=== PATIENT | male | born 1970 | race Caucasian/White ===

== ENCOUNTER 2020-11-07 15:05 | Inpatient (IN) | payer OTHER ==
[~2020-11-07] VITALS: Ht 170.2 cm; Wt 136.1 kg
[~2020-11-07 15:05] MED LIST: ATENOLOL50 MG; SYNTHROID100 MCG
[2020-11-07] MEDS ORDERED: JANUMET XR 50-1 EAC1 PO (15:31)
[2020-11-07] MEDS ORDERED: TENORMIN100 M1 PO (15:31)
[2020-11-07] MEDS ORDERED: SYNTHROID75 MCG PO (15:31)
[2020-11-07] MEDS ORDERED: METFORMIN HCL500 M3 (15:32)
[2020-11-12] MEDS ORDERED: TENORMIN100 M1 PO (16:17)
[2020-11-12] MEDS ORDERED: INTESTINEX680 M1 PO (16:17)
[2020-11-12] MEDS ORDERED: JANUMET XR 50-1 EAC1 PO (16:17)
[2020-11-12] MEDS ORDERED: SYNTHROID75 MCG PO (16:17)
== END 2020-11-12 17:49 | disposition home or self-care (01) | DRG 690 ==
LOC: ER 15:05 → SEC-K 22:41 → SURG 22:41 → SURH 11-09 08:15
PROVIDERS: ADMIT Internal Medicine; ATTEND Internal Medicine
PROC: 8E0ZXY6 Isolation (ICD-10-PCS; principal; 2020-11-07)
DX: N39.0 Urinary tract infection, site not specified (principal); Z16.12 Extended spectrum beta lactamase (ESBL) resistance; Z20.822 Contact with and (suspected) exposure to COVID-19; B96.20 Unspecified Escherichia coli [E. coli] as the cause of diseases classified elsewhere

== ENCOUNTER 2021-06-16 13:17 | Emergency (ER) | payer OTHER ==
[~2021-06-16] VITALS: Ht 177.8 cm; Wt 149.7 kg
[~2021-06-16 13:17] MED LIST changes: +INTESTINEX680 M1 PO; +JANUMET XR 50-1 EAC1 PO; +METFORMIN HCL500 M3; +SYNTHROID75 MCG PO; +TENORMIN100 M1 PO
[2021-06-16] MEDS ORDERED: XARELTO15 MG PO (18:05)
[2021-06-16] MEDS ORDERED: XARELTO20 MG PO (18:05)
== END 2021-06-16 18:10 | disposition home or self-care (01) ==
LOC: ER 13:17
DX: I80.9 Phlebitis and thrombophlebitis of unspecified site (principal); M79.604 Pain in right leg; I10 Essential (primary) hypertension; E11.9 Type 2 diabetes mellitus without complications

== ENCOUNTER 2021-06-22 06:56 | Emergency (ER) | payer OTHER ==
[~2021-06-22] VITALS: Ht 177.8 cm; Wt 149.7 kg
[~2021-06-22 06:56] MED LIST changes: +XARELTO15 MG PO; +XARELTO20 MG PO
== END 2021-06-22 12:56 | disposition home or self-care (01) ==
LOC: ER 06:56
DX: N20.2 Calculus of kidney with calculus of ureter (principal); R31.0 Gross hematuria; Z86.718 Personal history of other venous thrombosis and embolism; Z79.01 Long term (current) use of anticoagulants; Z79.84 Long term (current) use of oral hypoglycemic drugs; E11.9 Type 2 diabetes mellitus without complications

== ENCOUNTER 2022-02-24 04:25 | Emergency (ER) | payer OTHER ==
[~2022-02-24] VITALS: Ht 177.8 cm; Wt 149.7 kg
== END 2022-02-24 09:47 | disposition home or self-care (01) ==
LOC: ER 04:25
DX: N39.0 Urinary tract infection, site not specified (principal)

== ENCOUNTER 2022-05-26 13:32 | Emergency (ER) | payer OTHER ==
[~2022-05-26] VITALS: Ht 177.8 cm; Wt 148.8 kg
== END 2022-05-26 18:31 | disposition home or self-care (01) ==
LOC: ER 13:32
DX: N20.9 Urinary calculus, unspecified (principal)

== ENCOUNTER 2022-05-30 12:43 | Inpatient (IN) | payer OTHER ==
[~2022-05-30] VITALS: Ht 177.8 cm; Wt 148.8 kg
--- NOTE | 2022-05-30 13:44 | NUR ---
SE RECIBE PTE ALERTA ORIENTADO X3.PTE REFIERE MADAI PRESENTADO LA NOCHE DE [place] FIEBRE DOLOR GUS EN LA SOUMYA QUE IRRADIA A LA ESPALDA BAJAN Y ESCALOSFRIO.PTE REFIERE MADAI VISITADO LA WERNER DE EMERGENCIA EL PASADO PADMINI.SE RASHAWN S/V Y SE UBICA.
--- NOTE | 2022-05-30 16:31 | NUR ---
PACIENTE EVALUADO POR EL QUIEN ORDENA TRATAMIENTO MEDICO. IZA KWON REALIZA MUESTRAS BAJO MEDIDAS ASEPTICAS Y SE ADMINISTRAN MEDICAMENTOS EDMAR ORDEN.
[2022-06-08] MEDS ORDERED: LEVOTHYROXINE88 MCG PO (16:02)
[2022-06-08] MEDS ORDERED: MONDOXYNE NL100 MG PO (16:02)
[2022-06-08] MEDS ORDERED: TAMS0.4C PO (16:02)
[2022-06-08] MEDS ORDERED: INTESTINEX680 M1 PO (16:02)
[2022-06-08] MEDS ORDERED: ATENOLOL100 MG PO (16:02)
== END 2022-06-08 18:03 | disposition home or self-care (01) | DRG 689 ==
LOC: ER 12:43 → MEDI 21:41
PROVIDERS: Surgery; ADMIT Internal Medicine; ATTEND Internal Medicine
PROC: B24BZZZ Ultrasonography of Heart with Aorta (ICD-10-PCS; 2022-06-01)
PROC: 0TP98DZ Removal of Intraluminal Device from Ureter, Via Natural or Artificial Opening Endoscopic (ICD-10-PCS; principal; 2022-06-02 18:30)
DX: N13.6 Pyonephrosis (principal); A41.51 Sepsis due to Escherichia coli [E. coli]; N20.1 Calculus of ureter; Z16.12 Extended spectrum beta lactamase (ESBL) resistance; N17.9 Acute kidney failure, unspecified; E86.0 Dehydration; I10 Essential (primary) hypertension; E78.5 Hyperlipidemia, unspecified; E03.9 Hypothyroidism, unspecified; G47.33 Obstructive sleep apnea (adult) (pediatric); E11.9 Type 2 diabetes mellitus without complications; Z79.4 Long term (current) use of insulin; Z20.822 Contact with and (suspected) exposure to COVID-19

== ENCOUNTER → 2022-07-14 | Day surgery (SDC) | payer OTHER ==
[~2022-07-14] VITALS: Ht 177.8 cm; Wt 152.0 kg
[~2022-07-14] MED LIST changes: +ATENOLOL100 MG PO; +CEFUROXIME500 MG PO; +JANUMET 50-1,01 EACH PO; +LEVOTHYROXINE88 MCG PO; +MELOXICAM15 MG PO; +MONDOXYNE NL100 MG PO; +TAMS0.4C PO; +TRAMADOL HCL50 MG PO
== END | disposition home or self-care (01) ==
LOC: CIR.AMB 06:40
PROVIDERS: ATTEND Surgery
DX: N20.2 Calculus of kidney with calculus of ureter (principal); N20.1 Calculus of ureter; Z20.822 Contact with and (suspected) exposure to COVID-19; I10 Essential (primary) hypertension; E03.9 Hypothyroidism, unspecified; E11.9 Type 2 diabetes mellitus without complications; Z79.4 Long term (current) use of insulin

== ENCOUNTER 2023-02-15 10:46 | Emergency (ER) | payer OTHER ==
[~2023-02-15] VITALS: Ht 177.8 cm; Wt 149.7 kg
[2023-02-15 13:26] LABS: HEMATOCRIT 41.2 % (39.0-48.0); MEAN CELL VOLUME 93.2 fL (80.0-100.00); MEAN CORPUSCULAR HEMOGLOBIN 31.6 pg (27.00-32.0); MEAN CORPUSCULAR HGB CONC 33.9 g/dl (32.0-36.0); PLATELET COUNT 181 K/uL (150-450); RED BLOOD COUNT 4.42 M/uL (4.00-6.00); RED CELL DISTRIBUTION WIDTH 14.9 % (11.5-14.5)
[2023-02-15 13:43] LABS: CALCIUM 8.9 mg/dL (8.5-10.1); CREATININE SERUM 1.88 mg/dL (0.70-1.30); GFR 38.02; POTASSIUM 4.16 mEq/L (3.5-5.1)
[2023-02-16] MEDS ORDERED: SYNTHROID88 MCG PO (13:43)
== END 2023-02-15 15:20 | disposition home or self-care (01) ==
LOC: ER
PROVIDERS: General Practice
DX: J06.9 Acute upper respiratory infection, unspecified (principal); N39.0 Urinary tract infection, site not specified; E86.0 Dehydration; Z20.822 Contact with and (suspected) exposure to COVID-19

== ENCOUNTER → 2023-02-16 | Emergency (ER) | payer OTHER ==
[~2023-02-16] VITALS: Ht 177.8 cm; Wt 151.5 kg
[~2023-02-16] MED LIST changes: +METFORMIN HCL1000 M3 PO; +SYNTHROID88 MCG PO
== END | disposition home or self-care (01) ==
LOC: ER 13:20
DX: R19.7 Diarrhea, unspecified (principal)

== ENCOUNTER 2023-02-18 22:22 | Emergency (ER) | payer OTHER ==
[~2023-02-18] VITALS: Ht 177.8 cm; Wt 153.3 kg
[~2023-02-18 22:22] MED LIST changes: -METFORMIN HCL1000 M3 PO
[2023-02-18] MEDS ORDERED: METFORMIN HCL1000 M3 PO (22:37)
== END 2023-02-19 01:33 | disposition home or self-care (01) ==
LOC: ER 22:23
DX: N20.1 Calculus of ureter (principal); Z87.442 Personal history of urinary calculi; E11.9 Type 2 diabetes mellitus without complications; Z79.84 Long term (current) use of oral hypoglycemic drugs; I10 Essential (primary) hypertension

== ENCOUNTER 2023-09-08 13:34 | Emergency (ER) | payer OTHER ==
[~2023-09-08] VITALS: Ht 175.3 cm; Wt 136.1 kg
[~2023-09-08 13:34] MED LIST changes: +METFORMIN HCL1000 M3 PO
[2023-09-08] MEDS ORDERED: GLIPIZIDE ER5 MG PO (14:07)
[2023-09-08 15:54] LABS: PH,URINE 5.5 (5.0-8.0); URINE APPEARANCE Cloudy; URINE BILIRRUBIN Negative (NEGATIVE); URINE BLOOD Moderate; URINE COLOR Yellow; URINE GLUCOSE Negative (NEGATIVE); URINE LEUKOCYTE Large; URINE NITRATE Positive; URINE PROTEIN 30 (NEGATIVE)
[2023-09-08 15:57] LABS: URINE BACTERIA 178.8 uL (0.0-1933); URINE EPITHELIAL CELLS 2.3 uL (0.0-38.8)
[2023-09-08 16:05] LABS: HEMATOCRIT 36.2 % (39.0-48.0); HEMOGLOBIN 12.5 g/dL (13-16.00); MEAN CELL VOLUME 90.9 fL (80.0-100.00); MEAN CORPUSCULAR HEMOGLOBIN 31.3 pg (27.00-32.0); MEAN CORPUSCULAR HGB CONC 34.5 g/dl (32.0-36.0); PLATELET COUNT 221 K/uL (150-450); RED BLOOD COUNT 3.98 M/uL (4.00-6.00); RED CELL DISTRIBUTION WIDTH 13.6 % (11.5-14.5)
[2023-09-08 16:25] LABS: BILIRUBIN TOTAL 0.94 mg/dL (0.3-1.2); CALCIUM 8.2 mg/dL (8.5-10.1); CREATININE SERUM 1.01 mg/dL (0.70-1.30); GFR 77.57; GLOBULINA 4.2 G/DL (2.4-3.5); POTASSIUM 3.75 mEq/L (3.5-5.1); TOTAL PROTEIN 7.2 gm/dL (6.4-8.2)
[2023-09-08] MEDS ORDERED: LEVOFLOXACIN750 MG PO (17:26)
[2023-09-08] MEDS ORDERED: levoFLOXacin IN DEXTROSE 5 % 5 MG/ML PIGGYBAG IV ONE (17:30)
== END 2023-09-08 18:37 | disposition home or self-care (01) ==
LOC: ER 13:35
PROVIDERS: Nurse Practitioner Family
DX: J06.9 Acute upper respiratory infection, unspecified (principal); N39.0 Urinary tract infection, site not specified; N20.9 Urinary calculus, unspecified; R42 Dizziness and giddiness; Z20.822 Contact with and (suspected) exposure to COVID-19; I10 Essential (primary) hypertension; E03.8 Other specified hypothyroidism; E11.9 Type 2 diabetes mellitus without complications; Z79.84 Long term (current) use of oral hypoglycemic drugs

== ENCOUNTER → 2023-10-22 07:11 | Outpatient (CLI) | payer OTHER ==
[~2023-10-22 07:11] MED LIST changes: +GLIPIZIDE ER5 MG PO; +LEVOFLOXACIN750 MG PO
[2023-10-22 08:13] LABS: HEMATOCRIT 39.2 % (39.0-48.0); HEMOGLOBIN 13.3 g/dL (13-16.00); MEAN CELL VOLUME 89.6 fL (80.0-100.00); MEAN CORPUSCULAR HEMOGLOBIN 30.4 pg (27.00-32.0); PLATELET COUNT 262 K/uL (150-450); RED BLOOD COUNT 4.38 M/uL (4.00-6.00); RED CELL DISTRIBUTION WIDTH 14.6 % (11.5-14.5)
[2023-10-22 08:15] LABS: URINE APPEARANCE Cloudy; URINE BILIRRUBIN Negative (NEGATIVE); URINE BLOOD Moderate; URINE COLOR Yellow; URINE GLUCOSE Negative (NEGATIVE); URINE KETONE Negative (NEGATIVE); URINE LEUKOCYTE Large; URINE NITRATE Positive; URINE UROBILINOGEN 0.2 E.U./dl
[2023-10-22 08:16] LABS: URINE BACTERIA 1307.7 uL (0.0-1933); URINE EPITHELIAL CELLS 3.8 uL (0.0-38.8); URINE RBC 17.1 uL (0.0-20.8); URINE WBC 2004.6 uL (0.0-23.2)
[2023-10-22 08:17] LABS: URINE PROTEIN 100 (NEGATIVE)
[2023-10-22 08:49] LABS: CALCIUM 9.4 mg/dL (8.5-10.1); CREATININE SERUM 0.84 mg/dL (0.70-1.30); GFR 95.95; POTASSIUM 4.19 mEq/L (3.5-5.1)
[2023-10-22 08:55] LABS: INR 1.27; PARTIAL THROMBOPLASTIN TIME 31.7 SECONDS (22.0-34.0); PROTHROMBIN TIME 13.6 SECONDS (9.0-11.5)
== END | disposition home or self-care (01) ==
LOC: LAB 07:11
PROVIDERS: ATTEND Surgery
DX: N39.0 Urinary tract infection, site not specified (principal)

== ENCOUNTER 2023-10-22 07:59 | Outpatient (CLI) | payer OTHER | END 2023-10-22 08:09 | disposition home or self-care (01) | LOC: RAD 07:59 | PROVIDERS: ATTEND Surgery | DX: N20.0 Calculus of kidney (principal) ==

== ENCOUNTER 2023-12-14 08:55 | Outpatient (CLI) | payer OTHER | END 2023-12-14 09:06 | disposition home or self-care (01) | LOC: RAD 08:55 | PROVIDERS: ATTEND Surgery | DX: N20.1 Calculus of ureter (principal) ==